=== PATIENT | female | born 1955 | race Asian ===

== ENCOUNTER 2022-08-31 11:00 | Outpatient (CLI) | payer BC, SELFPAY | END 2022-08-31 11:01 | disposition home or self-care (01) | PROVIDERS: PCP Family Medicine; Visit Provider Physician Assistant Medical | DX: Z00.00 Encounter for general adult medical examination without abnormal findings (principal); E78.5 Hyperlipidemia, unspecified; E03.9 Hypothyroidism, unspecified | CPT/HCPCS: 80053; 80061; 84443 ==

== ENCOUNTER 2022-10-26 10:45 | Outpatient (RCR) | payer BC, SELFPAY | END 2023-01-23 09:30 | disposition home or self-care (01) | PROVIDERS: PCP Physician Assistant Medical; Visit Provider Physician Assistant Medical | DX: M54.2 Cervicalgia (principal); Z51.89 Encounter for other specified aftercare | CPT/HCPCS: 97110; 97140; 97161 ==

== ENCOUNTER 2024-08-27 11:32 | Outpatient (CLI) | payer MEDICARE, BC, SELFPAY | END 2024-08-27 11:33 | disposition home or self-care (01) | LOC: NFLDREF 08-31 00:05 | PROVIDERS: PCP Emergency Medicine; Visit Provider Emergency Medicine | DX: E03.9 Hypothyroidism, unspecified (principal); E78.5 Hyperlipidemia, unspecified; R73.01 Impaired fasting glucose | CPT/HCPCS: 80053; 80061; 84443 ==